=== PATIENT | female | born 1965 | race Native Hawaiian/Other Pacific Islander ===

== ENCOUNTER 2016-12-20 08:52 | Outpatient (CLI) | payer OTHER | END 2016-12-20 21:33 | disposition home or self-care (01) | LOC: MAMMO 08:52 | DX: Z12.31 Encounter for screening mammogram for malignant neoplasm of breast (principal) ==

== ENCOUNTER 2017-07-18 08:22 | Outpatient (CLI) | payer OTHER | END 2017-07-18 19:22 | disposition home or self-care (01) | LOC: RAD 08:22 | DX: R06.02 Shortness of breath (principal) ==

== ENCOUNTER 2018-04-21 09:34 | Outpatient (CLI) | payer OTHER ==
[2018-04-21 10:38] LABS: PLATELET COUNT 277 K/uL (152-353)
[2018-04-21 10:50] LABS: POTASSIUM 3.7 mmol/L (3.6-5.2)
== END 2018-04-21 19:24 | disposition home or self-care (01) ==
LOC: LABW 09:34
PROVIDERS: Nurse Practitioner Family
DX: R10.9 Unspecified abdominal pain (principal); R11.0 Nausea; E03.9 Hypothyroidism, unspecified
CPT/HCPCS: 36415; 80053; 82150; 83690; 84436; 84443; 85027; 86677

== ENCOUNTER 2018-09-08 08:34 | Outpatient (CLI) | payer OTHER | END 2018-09-08 23:25 | disposition home or self-care (01) | LOC: MAMMO 08:34 | DX: Z12.31 Encounter for screening mammogram for malignant neoplasm of breast (principal); N64.59 Other signs and symptoms in breast ==

== ENCOUNTER 2018-10-22 07:40 | Day surgery (SDC) | payer OTHER ==
[~2018-10-22] VITALS: Ht 30.5 cm; Wt 0.5 kg
[2018-10-22 08:18] LABS: PLATELET COUNT 336 K/uL (152-353)
== END 2018-10-22 10:26 | disposition home or self-care (01) ==
LOC: OR 07:40
PROVIDERS: Internal Medicine
PROC: 0DJD8ZZ Inspection of Lower Intestinal Tract, Via Natural or Artificial Opening Endoscopic (ICD-10-PCS; principal; 2018-10-22)
DX: K64.8 Other hemorrhoids (principal); Z12.11 Encounter for screening for malignant neoplasm of colon; Z80.0 Family history of malignant neoplasm of digestive organs
CPT/HCPCS: 80053; 83735; 85027; J2250; J2405; J2704

== ENCOUNTER 2019-12-28 08:13 | Outpatient (CLI) | payer OTHER | END 2019-12-28 23:29 | disposition home or self-care (01) | LOC: MAMMO 08:13 | DX: Z12.31 Encounter for screening mammogram for malignant neoplasm of breast (principal) ==

== ENCOUNTER 2020-04-14 08:39 | Outpatient (CLI) | payer OTHER | END 2020-04-14 19:32 | disposition home or self-care (01) | LOC: US 08:39 | PROVIDERS: ATTEND Internal Medicine | DX: D17.71 Benign lipomatous neoplasm of kidney (principal) ==

== ENCOUNTER 2020-05-01 08:15 | Outpatient (CLI) | payer OTHER ==
[2020-05-01 08:31] LABS: PLATELET COUNT 272 K/uL (152-353)
[2020-05-01 09:15] LABS: POTASSIUM 3.4 mmol/L (3.6-5.2)
== END 2020-05-01 19:17 | disposition home or self-care (01) ==
LOC: LABW 08:15
PROVIDERS: ATTEND Internal Medicine Nephrology
DX: D30.01 Benign neoplasm of right kidney (principal)
CPT/HCPCS: 36415; 80053; 80061; 82570; 83036; 84155; 84439; 84443; 85027

== ENCOUNTER 2020-05-10 11:35 | Outpatient (CLI) | payer OTHER | END 2020-05-10 22:13 | disposition home or self-care (01) | LOC: MRI 11:35 | PROVIDERS: ATTEND Internal Medicine Nephrology | DX: D30.01 Benign neoplasm of right kidney (principal) | CPT/HCPCS: A9576 ==

== ENCOUNTER 2020-11-23 08:36 | Outpatient (CLI) | payer OTHER | END 2020-11-23 16:00 | disposition home or self-care (01) | LOC: MRI 08:36 | PROVIDERS: ATTEND Emergency Medicine | DX: D30.01 Benign neoplasm of right kidney (principal); D17.71 Benign lipomatous neoplasm of kidney | CPT/HCPCS: 36415; 82565; 84520; A9576 ==

== ENCOUNTER 2021-02-14 08:18 | Outpatient (CLI) | payer OTHER | END 2021-02-14 19:43 | disposition home or self-care (01) | LOC: MAMMO 08:18 | PROVIDERS: ATTEND Physician Assistant Medical | DX: Z12.31 Encounter for screening mammogram for malignant neoplasm of breast (principal) ==

== ENCOUNTER 2021-05-07 08:53 | Outpatient (CLI) | payer OTHER ==
[2021-05-07 09:26] LABS: PLATELET COUNT 243 K/uL (152-353)
[2021-05-07 09:52] LABS: POTASSIUM 3.5 mmol/L (3.6-5.2)
== END 2021-05-07 18:59 | disposition home or self-care (01) ==
LOC: LABW 08:53
PROVIDERS: ATTEND Internal Medicine
DX: E78.5 Hyperlipidemia, unspecified (principal); E03.9 Hypothyroidism, unspecified; I10 Essential (primary) hypertension
CPT/HCPCS: 36415; 80053; 80061; 81000; 82306; 84439; 84443; 85027

== ENCOUNTER 2021-07-02 10:27 | Outpatient (CLI) | payer OTHER | END 2021-07-02 19:01 | disposition home or self-care (01) | LOC: RAD 10:27 | PROVIDERS: ATTEND Internal Medicine | DX: M79.671 Pain in right foot (principal); M25.571 Pain in right ankle and joints of right foot ==

== ENCOUNTER 2022-04-15 11:20 | Outpatient (CLI) | payer OTHER | END 2022-04-15 21:46 | disposition home or self-care (01) | LOC: US 11:20 | PROVIDERS: ATTEND Internal Medicine | DX: M79.89 Other specified soft tissue disorders (principal) ==

== ENCOUNTER 2022-04-16 08:14 | Outpatient (CLI) | payer OTHER ==
[2022-04-16 08:40] LABS: PLATELET COUNT 261 K/uL (152-353)
[2022-04-16 09:08] LABS: POTASSIUM 3.1 mmol/L (3.6-5.2)
== END 2022-04-16 21:51 | disposition home or self-care (01) ==
LOC: LABW 08:14
PROVIDERS: ATTEND Internal Medicine
DX: E03.8 Other specified hypothyroidism (principal); E78.49 Other hyperlipidemia; I10 Essential (primary) hypertension; M79.89 Other specified soft tissue disorders; R82.998 Other abnormal findings in urine
CPT/HCPCS: 36415; 80053; 80061; 81000; 82306; 83036; 83880; 84439; 84443; 85027; 85379; 87086; 87088

== ENCOUNTER 2022-05-09 08:12 | Outpatient (CLI) | payer OTHER | END 2022-05-09 19:31 | disposition home or self-care (01) | LOC: MAMMO 08:12 | PROVIDERS: ATTEND Internal Medicine | DX: Z12.31 Encounter for screening mammogram for malignant neoplasm of breast (principal); Z78.0 Asymptomatic menopausal state ==